=== PATIENT | female | born 1950 | race Caucasian/White ===

== ENCOUNTER 2024-07-20 21:15 | Day surgery (SDC) | payer MEDICARE, BC, SELFPAY ==
[2024-07-20] VITALS (8 sets, daily range): BP systolic 134–148; BP diastolic 54–76; BMI 26.5; BMI 27.7
[2024-07-20 17:27] LABS: % Basophils 0.4 % (0-2); % Eosinophils 0.2 % (0-6); % Immature Granulocytes 0.5 % (0-0.5); % Lymphocytes 6.4 % (20.5-51.1); % Neutrophils 86.5 % (42.2-75.2); Absolute Basophils 0.1 10^3/uL (0-0.2); Absolute Immature Granulocytes 0.1 10^3/uL (0-0.05); Absolute Neutrophils 13.9 10^3/uL (1.4-6.5); Hematocrit 37.3 % (37.0-47.0); Mean Corp Hgb Conc. 32.2 g/dL (33.0-37.0); Mean Corpuscular Hgb 24.5 pg (27.0-31.0); Mean Corpuscular Volume 76.3 fL (81.0-99.0); Mean Platelet Volume 9.6 fL (7.4-10.4); Nucleated Red Blood Cells % 0 %; Platelet Count 306 10^3/uL (130-400); Red Blood Cell Count 4.89 10^6/uL (4.20-5.40); White Blood Cell Count 16.1 10^3/uL (4.8-10.8)
[2024-07-20 17:45] LABS: ALT (SGPT) 39 U/L (0-35); AST (SGOT) 37 U/L (14-36); Albumin 4.8 g/dl (3.5-5.0); Alkaline Phosphatase 140 U/L (38-126); Blood Urea Nitrogen 25 mg/dl (7-17); Calcium 9.8 mg/dl (8.4-10.2); Carbon Dioxide 24 mmol/L (22-30); Chloride 98 mmol/L (98-107); Glucose 126 mg/dl (70-99); Lipase 96 U/L (23-300); Sodium 137 mmol/L (135-145); Total Bilirubin 0.8 mg/dl (0.2-1.3); Total Protein 6.7 g/dl (6.3-8.2); eGFR > 60.00
--- NOTE | 2024-07-20 18:40 | ED.GENMED ---
History of Present Illness
General
Chief Complaint: Abdominal Symptoms
Source: patient
Exam Limitations: none
Time Seen by Provider: 07/20/24 17:53
Nursing documentation reviewed up to this point in time: agreed with
History of Present Illness
History of Present Illness:
73-year-old female past medical history of hypertension hyperlipidemia presenting to the emergency department today with concerns of right lower quadrant French pain worsening over the past 5 hours or so. Denies any specific injury but was playing
tennis earlier today. No nausea or vomiting no changes in bowel movements. No chest pain shortness of breath. No vaginal symptoms. No urinary symptoms.
Past History
Past History
ED Past Medical History: Cancer (Breast CA and Bladder CA), GERD, HTN, Hypercholesterolemia, Psychiatric (A/D), Other (The patient is under severe psychiatric stress due to the disability of her . ) and Other (Breast CA, in situ); Negative
CAD or COPD
ED Past Surgical History: Gynecological ( Right Lumpectomy with Radiation only, Oophorectomy 1.5)
Social History
Tobacco: Former smoker
Alcohol: Daily (Wine)
Drug: None
Personal:
Living: with family
Employment: Employed
Family History
Family History: Hypertension
Review of Systems
Review of Systems
Allergies reviewed?: Yes
All Other Systems: ROS reviewed and negative except as documented in HPI and ROS
Phy Exam
Physical Exam
Physical Exam:
GENERAL: Alert , in no apparent distress
EYE: pupils equal and reactive
NECK: Supple, no significant adenopathy.
ENT: o/p clr, mmm.
CARDIAC: Regular rate and rhythm .
LUNGS: Clear breath sounds bilaterally, no acute respiratory distress, no wheezes/rales/rhonchi
ABDOMEN: Severe tenderness palpation to the right lower quadrant of the abdomen otherwise soft benign abdomen.
NEUROLOGICAL: Alert and oriented, no focal neuro deficits
SKIN: Warm and dry, skin intact.
MUSCULOSKELETAL: No edema, well perfused.
PSYCH: Normal and appropriate interaction.
Course
Orders/Labs/Results
Orders:
Orders
07/20/24 17:18
Complete Blood Count/With Diff Urgent
Comprehensive Metabolic Panel Urgent
Lipase Urgent
07/20/24 18:18
CT Abd/Pel (IV only)-DH only Urgent
Comment:
Reason For Exam: rlq pain
Ketorolac [Toradol] 15 mg IV NOW STA
07/20/24 18:19
0.9% Sodium Chloride 1000 ml [Nss] 1,000 ml IV BOLUS
07/20/24 20:27
Zosyn 3.375 grams IVPB NOW Piperacillin/Tazo 3.375 Gram [Zosyn] 3.375 gram in 50 ml IV NOW
Abnormal Lab Results
07/20/24
17:18
WBC 16.1 H 10^3/uL
(4.8-10.8)
MCV 76.3 L fL
(81.0-99.0)
MCH 24.5 L pg
(27.0-31.0)
MCHC 32.2 L g/dL
(33.0-37.0)
RDW 19.0 H %
(11.5-14.5)
Abs Immat Gran (auto) 0.1 H 10^3/uL
(0-0.05)
Absolute Neuts (auto) 13.9 H 10^3/uL
(1.4-6.5)
Absolute Lymphs (auto) 1.0 L 10^3/uL
(1.2-3.4)
Absolute Monos (auto) 1.0 H 10^3/uL
(0.1-0.6)
Neutrophils % 86.5 H %
(42.2-75.2)
Lymphocytes % 6.4 L %
(20.5-51.1)
BUN 25 H mg/dl
(7-17)
Glucose 126 H mg/dl
(70-99)
AST 37 H U/L
(14-36)
ALT 39 H U/L
(0-35)
Alkaline Phosphatase 140 H U/L
(38-126)
07/20/24 17:18
07/20/24 17:18
Vital Signs
Initial and Last Documented VS:
Initial Vital Signs
Temp Pulse Resp BP Pulse Ox
98.2 F 91 18 147/73 95
07/20/24 17:11 07/20/24 17:11 07/20/24 17:11 07/20/24 17:11 07/20/24 17:11
Last Documented Vital Signs
Temp Pulse Resp BP Pulse Ox
98.5 F 98 20 137/62 92
07/20/24 18:48 07/20/24 18:48 07/20/24 18:48 07/20/24 18:48 07/20/24 18:48
MDM/Problems Addressed
MDM/Problems Addressed:
73-year-old female presenting to the emergency department today with concerns of worsening right lower quadrant abdominal pain over the past 5 hours. Upon arrival vital signs are normal but patient does have exquisite discomfort to the right lower
quadrant when palpating. Remainder of the abdomen soft. White count 16.1. Plan for CT scan for further assessment. CT scan showing acute appendicitis without complicating features. Case discussed with general surgery that will accept her to
their service. Starting Zosyn otherwise stable throughout ER stay.
*Critical Care Note
Total Time (30-74mins, 75-104mins- exclusive of procedures): Not Applicable
ED Attending Note
-
Portions of this chart may have been created with voice recognition software.� Occasional wrong word or��sound alike� substitutions may have occurred due to the inherent limitations of voice recognition software.
Discharge Plan
Departure
Patient Disposition: Admit
Date of Disposition: 07/20/24
Time of Disposition: 20:28
Admit to: Med/Surg
Admit to doctor: Hernandez
Presentation/result/management discussed w/ accepting MD/DO: General surgery
Patient with high blood pressure during this ER visit?: No
Condition: Good
Covid-19: Not Applicable
Discharge Problem:
Acute appendicitis
Prescriptions:
No Action
hydrochlorothiazide [Microzide] 12.5 MG capsule
25 mg PO DAILY
multivitamin [Multi-Day] 1 EACH tablet
1 mg PO DAILY
anastrozole 1 MG tablet
1 mg PO DAILY
atorvastatin 10 MG tablet
10 mg PO DAILY
citalopram 10 MG tablet
10 mg PO DAILY
aspirin 81 MG tablet,chewable
81 mg PO DAILY
calcium citrate 200 MG tablet
200 mg PO DAILY
docosahexaenoic acid-epa 1 CAP capsule
1 cap PO DAILY
omeprazole magnesium [Prilosec OTC] 20 MG tablet,delayed release (DR/EC)
20 mg PO DAILY
sucralfate 1 GRAM tablet
1 g PO ACHS Qty: 28 0RF
Rx Instructions:
May disolve in 10ml of water
Referrals:
Iker Chan MD [Family Provider] -
Interventions
Interventions:
*Risk Screen - Suicide Last Done: 07/20/24 17:11
*General Assessment Last Done: 07/20/24 17:11
*Neglect/Abuse Screening Last Done: 07/20/24 17:11
ED- Fall Risk Assessment Last Done: 07/20/24 18:48
*ED COVID-19 Vaccine History Last Done: 07/20/24 18:48
QF-Gtvvty-Vlmyypjptr Assessment Last Done: 07/20/24 18:48
Discharge Date and Time
Print Language: BAHRAINI
[2024-07-20] MEDS: NSS 1000 IV ×2 (18:42→23:29)
[2024-07-20] MEDS: TORADOL 15 MG IV (18:42)
[2024-07-20] MEDS: ZOSYN 50 IV (20:48)
--- NOTE | 2024-07-20 21:05 | HPS.HSE ---
Family Physician
-
Family Physician: Iker Chan MD
Chief Complaint
-
abd pain
History of Present Illness
73-year-old female past medical history of hypertension hyperlipidemia, right breast cancer, OA GERD presenting to the emergency department today with concerns of right lower quadrant abd pain worsening over the past 5 hours or so. Pt states she
was playing Tennis from 10-12pm and afterward started with abd pain and bloating.Thought initially she needed to have a BM but pain increased throughout day. No nausea or vomiting no changes in bowel movements. No chest pain shortness of breath.
No vaginal symptoms. No urinary symptoms.
ct abd: The appendix is dilated and measures up to 11 mm in diameter. Periappendiceal inflammatory fat stranding and wall thickening are compatible with acute appendicitis. No extraluminal free air or fluid collection. No bowel obstruction.
WBC 16.1
Medical History
Past Medical History
Past Medical History: Reports Cancer (right breast cancer with lumpectomy and radiation 10 yrs ago), GERD, HTN, Hypercholesterolemia and Psychiatric (depression after loss of )
Past Surgical History: Reports Gynocological (partial oopherectomy), Orthopedic (right TKA january 2024, lumbar epidurals), Tonsilectomy and Other (hernia repair with mesh x 3 'years ago')
Social History
Tobacco: Non-smoker
Alcohol: Daily (wine)
Drug: None
Personal:
Living: Alone
Employment: Retired
Family History
Family History: Not pertinent
Allergies / Home Medications
Allergies reflects when Allergies were last updated in [employer].
Home Medications with original date entered in [employer]
Allergy/Medication List:
Allergies
Allergy/AdvReac Type Severity Reaction Status Date / Time
No Known Allergies Allergy Verified 07/20/24 20:41
Home Medications
hydrochlorothiazide 12.5 mg capsule (Microzide) 25 mg PO DAILY
aspirin 81 mg chewable tablet 81 mg PO DAILY
calcium citrate 200 mg (950 mg) tablet 200 mg PO DAILY
multivitamin (Multi-Day tablet) 1 mg PO DAILY
omeprazole magnesium 20 mg tablet,delayed release (Prilosec OTC) 40 mg PO DAILY
amlodipine 5 mg tablet 5 mg PO DAILY HS
coenzyme Q10 100 mg capsule (CoQ-10) 200 mg PO DAILY
duloxetine 20 mg capsule,delayed release (Cymbalta) 20 mg PO DAILY 07/20/24
famotidine 40 mg tablet 40 mg PO DAILY 07/20/24
losartan 100 mg tablet 100 mg PO DAILY 07/20/24
rosuvastatin 10 mg tablet 10 mg PO DAILY 07/20/24
Review of Systems
-
History Source: Patient
A 12 point ROS was completed and negative except as noted: Yes
Constitutional: Reports No Symptoms
EENT: Reports No Symptoms
Cardiac: Reports No Symptoms
Abdomen/GI: Reports Abdominal Pain
Musculoskeletal: Reports No Symptoms
Skin: Reports No Symptoms
Neurological: Reports No Symptoms
Endocrine: Reports No Symptoms
Hematologic/Lymphatic: Reports No Symptoms
Psych: Reports No Symptoms
Physical Exam
Vital Signs
Vital Signs
Temp Pulse Resp BP Pulse Ox
98.2 F 99 20 139/64 96
07/20/24 20:41 07/20/24 20:58 07/20/24 18:48 07/20/24 20:52 07/20/24 20:58
Physical Exam
General: Well Developed, Well Nourished, No Apparent Distress, Comfortable and Pain (5/10 abd pain worse with movement)
HEENT: NormoCephalic, Anicteric and Moist mucous membranes
Respiratory: Clear and Non Labored Respirations
Cardiac: S1/S2 and Regular Rhythm
Breast: Deferred by me
GI: Soft, Normal Bowel Sounds, Tender (rlq) and Distended (softly distended)
Rectal: Deferred by Provider
Genito-urinary: Deferred by me
Musculoskeletal: No Clubbing and No Cyanosis
Skin: Warm
Neuro: Alert
Hematologic/Lymphatic: No Lymphadenopathy
Psych: Calm
Laboratory Results
-
07/20/24 17:18
07/20/24 17:18
Laboratory Results
Total Bilirubin 0.8 mg/dl (0.2-1.3) 07/20/24 17:18
AST 37 U/L (14-36) H 07/20/24 17:18
ALT 39 U/L (0-35) H 07/20/24 17:18
Alkaline Phosphatase 140 U/L (38-126) H 07/20/24 17:18
Lipase 96 U/L (23-300) 07/20/24 17:18
Data Reviewed
-
CT Scan: Discussed with Physician
Lab Data: Discussed with Patient
Impression/Plan
-
IMPRESSION:
acute appendicis without perforations
PLAN:
Admit to service of Dr Ng
med surg obs
acute appendicis without perforations
-npo x meds after midnight
-ivf nss@80
-pain control: tylenol, toradol, morphine prn
-cont zosyn q6prn
-WBC 16.1--> recheck in am
HTN
-cont Norvasc, losartan, hold hctz with OR
HLD:
-Some transamitis on labs
-repeat in am and can likely resume rosuvastatin at dc
Depression
-cont cymbalta
GERD
-cont omeprazole, pepcid
dvt proph: scd
Full code
--- NOTE | 2024-07-20 23:13 | PTCARENOTE ---
pt admitted to 2S. AAOx3 pleasant. Assessment done and charted. Pt c/o Rt lower quadrant pain but manageable. Reg Heart sounds, traces of ankle edema. Lung sounds are diminished at the bases, shallow breathing. Abd round and tender to palpation.
SCD's knee high and CRISTELA placed. Call coffman within reach.
[2024-07-21] VITALS (13 sets, daily range): BP systolic 123–138; BP diastolic 55–73
[2024-07-21] MEDS: TORADOL 10 MG IV ×4 (00:42→20:47)
[2024-07-21] MEDS: ZOSYN 50 IV ×3 (03:22→21:57)
[2024-07-21 06:11] LABS: % Basophils 0.5 % (0-2); % Eosinophils 1.4 % (0-6); % Immature Granulocytes 0.2 % (0-0.5); % Lymphocytes 13.6 % (20.5-51.1); % Monocytes 6.7 % (1.7-9.3); % Neutrophils 77.6 % (42.2-75.2); Absolute Eosinophils 0.1 10^3/uL (0-0.7); Absolute Lymphocytes 1.2 10^3/uL (1.2-3.4); Absolute Monocytes 0.6 10^3/uL (0.1-0.6); Absolute Neutrophils 6.7 10^3/uL (1.4-6.5); Hematocrit 31.9 % (37.0-47.0); Hemoglobin 10.4 g/dL (12.0-16.0); Mean Corp Hgb Conc. 32.6 g/dL (33.0-37.0); Mean Corpuscular Hgb 25.7 pg (27.0-31.0); Mean Platelet Volume 10.3 fL (7.4-10.4); Nucleated Red Blood Cells % 0 %; Platelet Count 250 10^3/uL (130-400); Red Blood Cell Count 4.04 10^6/uL (4.20-5.40); Red Cell Dist. Width 18.6 % (11.5-14.5); White Blood Cell Count 8.6 10^3/uL (4.8-10.8)
[2024-07-21 06:47] LABS: ALT (SGPT) 27 U/L (0-35); AST (SGOT) 27 U/L (14-36); Albumin 3.5 g/dl (3.5-5.0); Alkaline Phosphatase 106 U/L (38-126); Blood Urea Nitrogen 17 mg/dl (7-17); Calcium 8.9 mg/dl (8.4-10.2); Carbon Dioxide 26 mmol/L (22-30); Chloride 101 mmol/L (98-107); Estimated Creatinine Clearance 63 ml/min; Glucose 107 mg/dl (70-99); Potassium 3.2 mmol/L (3.5-5.1); Sodium 139 mmol/L (135-145); Total Protein 5.4 g/dl (6.3-8.2); eGFR > 60.00
--- NOTE | 2024-07-21 07:42 | W.SUR.PREOP ---
Pre-Operative Surgical Note
-
I have examined this patient prior to the performance of the scheduled procedure.
The patient's condition is unchanged from the time of the current History and
Physical and the patient is able to undergo the scheduled procedure.
[2024-07-21] MEDS: COZAAR PO (07:56)
[2024-07-21] MEDS: CYMBALTA DELAYED RELEASE PO (07:56)
[2024-07-21] MEDS: NORVASC PO (07:56)
[2024-07-21] MEDS: ORETIC PO (07:56)
[2024-07-21] MEDS: PROTONIX PO (07:57)
[2024-07-21] MEDS: THERAGRAN PO (07:57)
[2024-07-21] MEDS: PEPCID PO (07:57)
[2024-07-21] MEDS: ZOSYN IV (08:50)
--- NOTE | 2024-07-21 09:25 | W.IMMPOSTOP ---
Surgical Immed Post Op Note
-
Primary Surgeon: Wallace Ng MD
Assisting Surgeon: None
Pre-op Diagnosis: Acute appendicitis
Post-op Diagnosis: Same
Procedure Performed: Laparoscopic appendectomy
Anesthesia Type: General
Specimen / Cultures: Appendix
Estimated Blood Loss: 1 cc
Complications: None
Operative Findings: Three 5 mm port appendectomy. Index was inflamed and mildly suppurative but not perforated. The base was healthy and ligated with 2-0 PDS Endoloops. Of note, no mesh noted in the left lower quadrant.
POST OP PLAN:
Imaging: None
Labs: Routine AM
Diet: Advance to Regular as tolerated
Analgesia: Tylenol 650mg q6 Pavan, Priya 5mg q6 PRN, Dilaudid 0.5mg q2h PRN
Neuro/vascular checks: q4h
AC/AP: Hold Therapeutic AC, Ok for DVT PPx
Activity: Ad Katie
Wound/Incisions/Drains: Routine
Abx: Can continue antibiotics while admitted
Dispo: RNF, anticipate discharge home later today off antibiotics.
--- NOTE | 2024-07-21 09:27 | OR.RPT ---
Operative Report
Operative Report
Patient Name: Shawna Davis
: 1950
Date of Operation: 07/21/2024
Preoperative Diagnosis: Acute Appendicitis
Postoperative Diagnosis: Same
Procedure(s):
Laparoscopic Appendectomy
Surgeon(s):
Dr. Ng
Financing Analyst(s):
DOMENIC Borden
Anesthesia: General
Estimated Blood Loss: 1 cc
Urine Output: None
Drains/Lines/Implants: None
Specimens:
1. Appendix
HPI/Surgical Indications:
This is a 73-year-old female who presents with a 1 day history of abdominal pain. Exam, labs and imaging are consistent with acute appendicitis. Risks/Benefits/Alternatives were discussed at length, and the patient agreed to proceed with surgery.
Operative Findings: Three 5 mm port appendectomy. Index was inflamed and mildly suppurative but not perforated. The base was healthy and ligated with 2-0 PDS Endoloops. Of note, no mesh noted in the left lower quadrant.
Procedure Description:
The patient was placed in the supine position, with the left arm tucked, and general anesthesia was induced. The abdomen was prepared and draped in a sterile fashion so as to expose the entire abdomen. A surgical time out was taken. Abdominal access
was obtained with an 5mm infra-umbilical George Entry. After confirming no injury on entrance, two additional 5mm ports were placed in the suprapubic area just off midline and in the left lower quadrant, where no mesh was identified. The patient was
placed in Trendelenberg with the right slightly up . The appendix was identified and a window was created in the mesoappendix. The appendix was suppurative and inflamed but not perforated. Using a bipolar energy device, the meso appendix was
divided. The base of the appendix appeared uninvolved and was ligated/divided using two 0-PDS Endoloops and the energy device. The appendix was placed in a specimen retrieval bag. Hemostasis was confirmed and the ports were removed under
visualization. The specimen was passed off the field. The umbilical port was closed with a [id number] 0-PDS and the skin for all three ports was closed with interrupted monocryls and covered with dermabond. The patient was awoken from
anesthesia in good condition and transported to the recovery area.
I was the attending physician and performed the procedure with assistance from the MLT above. I was present for all portions of the case, excluding skin closure.
Wallace Ng MD
--- NOTE | 2024-07-21 10:00 | SUR.PHASEI ---
Pt received 20MEQ of Potassium in OR
--- NOTE | 2024-07-21 10:41 | PTCARENOTE ---
Pt returned to 2S in bed. Pt drowsy but easily arouses to verbal stimuli. Nasal cannula maintained, O2 92% on 2L. Incentive spirometer education provided, pt demonstrated understanding. 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 IVF infusing per
order. Bed locked and in the lowest position, safety maintained. Oriented to room and call augustus sister at bedside.
--- NOTE | 2024-07-21 11:50 | CM ---
Met with pt at bedside
Pt reports she lives alone in a 2 story home; 1 step to enter, FF set-up
Independent, driving, active
DME - none
SNF - no past hx
HH - had in past - unsure of agency. Had outpatient PT at in past
Has ride at discharge
PCP - Kyle Chan
Pharm - [facility]
Discussed [employer] letter
Plan - anticipate home no needs
[2024-07-21] MEDS: TYLENOL 650 MG PO (11:51)
[2024-07-21] MEDS: NSS IV (16:51)
--- NOTE | 2024-07-21 17:00 | PTCARENOTE ---
Several attempts made to wean pt to room air. Pt unable to maintain O2 saturation > 92% on room air. Pt repeatedly desatting to low- mid 80s when off oxygen, Pt able to reach 95 on room air while taking deep breaths/ using IS. Pt denies SOB,
dyspnea, CP/ pressure or palpitations. Jamal Ferrara EDGE GRINDER notified. Care remains ongoing.
[2024-07-21 20:33] LABS: Hepatitis C Antibody Negative (Negative)
[2024-07-22 03:10] VITALS: BP 138/66
[2024-07-22] MEDS: ZOSYN 50 IV (04:18)
[2024-07-22 07:05] VITALS: BP 124/69
[2024-07-22] MEDS: PROTONIX 40 MG PO (07:42)
[2024-07-22] MEDS: PEPCID 40 MG PO (07:42)
[2024-07-22] MEDS: CYMBALTA DELAYED RELEASE 20 MG PO (07:42)
[2024-07-22] MEDS: THERAGRAN 1 TABLET PO (07:42)
[2024-07-22] MEDS: COZAAR 100 MG PO (07:42)
[2024-07-22] MEDS: ORETIC 25 MG PO (07:42)
[2024-07-22] MEDS: NORVASC 5 MG PO (07:43)
[2024-07-22] MEDS: TYLENOL 650 MG PO (07:56)
--- NOTE | 2024-07-22 09:07 | W.PN.GS2 ---
Addendum entered and electronically signed by Nicolás Hernandez MD 07/22/24 10:15:
Patient seen and examined.
No complaints. Pain well-controlled. Denies nausea or vomiting. Passing flatus. Weaned off of O2, no reports of chest pain or shortness of breath. Ambulating. Voiding.
Gen: NAD
Abd: soft, mild tenderness, ND, non-peritoneal, incisions c/d/i - no erythema, or drainage, mild ecchymosis
Patient is a 73 yo F POD#1 s/p laparoscopic appendectomy
AVSS
Weaned off of supplemental O2
Stable and cleared for discharge
--Regular diet
--Pain control: Tylenol, Toradol, Oxycodone
--Abx: none needed on DC
--Home meds
--Continue IS
--Discharge to home
Original Note:
Today's Communication / Plan
-
dispo planning
Assessment / Plan
-
73 yo female who presented with acute appendicitis now POD #1 lap appendectomy
Post op acute hypoxia secondary to atelectasis, now resolved
AFVSS
Tolerating diet
--Continue regular diet
--Analgesics prn
--Continue IS
--Discharge to home
Subjective Data
-
Date of Service: July 22, 2024
Patient seen and evaluated at bedside with Dr. Hernandez. Denies n/v. Tolerating diet, passing flatus. OOB/Ambulating. Denies cough/sob. Pain minimal.
Objective Data
-
Intake and Output
07/21/24 07/22/24 07/23/24
06:59 06:59 06:59
Intake Total 650 / 650 3250 / 3250
Balance 650 / 650 3250 / 3250
Intake:
Oral fluids 120 / 120 2520 / 2520
IV fluids (Total) 480 / 480 580 / 580
normosol 100 / 100
IV piggybacks 50 / 50 150 / 150
Other:
Number of approximated MODERATE 1 4
amounts of urine
Number of approximated LARGE 1 2
amounts of urine
Vital Signs
Temp Pulse Resp BP Pulse Ox
97.6 F 82 14 124/69 96
07/22/24 07:05 07/22/24 07:05 07/22/24 07:05 07/22/24 07:05 07/22/24 07:05
Lab Results
07/21/24 04:58
07/21/24 04:58
Calcium 8.9 mg/dl (8.4-10.2) 07/21/24 04:58
Total Bilirubin 1.0 mg/dl (0.2-1.3) 07/21/24 04:58
AST 27 U/L (14-36) 07/21/24 04:58
ALT 27 U/L (0-35) 07/21/24 04:58
Alkaline Phosphatase 106 U/L (38-126) 07/21/24 04:58
Total Protein 5.4 g/dl (6.3-8.2) L 07/21/24 04:58
Albumin 3.5 g/dl (3.5-5.0) 07/21/24 04:58
Physical Exam
-
NAD
Nonlabored respirations
ABD soft, nt, nd
Incisions well approximated with intact glue and no erythema
--- NOTE | 2024-07-22 09:10 | W.DS.TRANS ---
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
-
Discharge Instructions:
Discharge Diagnosis/Procedures Appendicitis status post laparoscopic
appendectomy
Diet Regular,As tolerated
Activity No strenuous activity
Bathing Restrictions OK to Shower
Instructions:
Stand-Alone Forms:
Changes to Home Medications: No
Discharge Medications:
DC Medications w/original date entered in [facility]
hydrochlorothiazide 12.5 mg capsule (Microzide) 25 mg PO DAILY Fever/Pain 12/03/09
aspirin 81 mg chewable tablet 81 mg PO DAILY Blood Clot Prevention/Tx 08/12/16
calcium citrate 200 mg PO DAILY Supplement 08/12/16
multivitamin (Multi-Day tablet) 1 mg PO DAILY Supplement 08/12/16
omeprazole magnesium 20 mg tablet,delayed release (Prilosec OTC) 40 mg PO DAILY Gastrointestinal Issue 08/12/16
amlodipine 5 mg tablet 5 mg PO DAILY Blood Pressure 07/20/24
coenzyme Q10 100 mg capsule (CoQ-10) 200 mg PO DAILY Supplement 07/20/24
duloxetine 20 mg capsule,delayed release (Cymbalta) 20 mg PO DAILY Depression 07/20/24
famotidine 40 mg tablet 40 mg PO DAILY Gastrointestinal Issue 07/20/24
losartan 100 mg tablet 100 mg PO DAILY Blood Pressure 07/20/24
rosuvastatin 10 mg tablet 10 mg PO DAILY High Cholesterol 07/20/24
acetaminophen 325 mg tablet 650 mg (2 x 325 mg) PO Q6HPRN PRN mild pain #14 tabs 07/21/24
ibuprofen 600 mg tablet 600 mg PO Q6H PRN pain #14 tabs 07/21/24
tramadol 50 mg tablet 25 mg (1/2 x 50 mg) PO Q6HPRN PRN severe pain/breakthrough pain #8 tabs 07/21/24
Home Medication Changes
Pending Results: No
--- NOTE | 2024-07-22 10:46 | CM ---
Pt for discharge today
Has ride home with family member
Plan - home no needs
== END 2024-07-22 10:33 | disposition home or self-care (01) ==
LOC: SDS 21:15
PROVIDERS: Nurse Practitioner Family; ATTENDING PHYSICIAN Surgery; EMERGENCY PHYSICIAN Student in an Organized Health Care Education/Training Program; FAMILY PHYSICIAN Family Medicine
DX: K35.80 Unspecified acute appendicitis (principal)
CPT/HCPCS: 44970; 88304; 71046; 74177; 80053; 83690; 85025; 86803; 96361; 96365; 96375; 99285; C1776; Q9967

== ENCOUNTER → 2024-08-15 07:46 | Outpatient (REF) | payer MEDICARE, BC, SELFPAY | LOC: HWRAD 07:46 | PROVIDERS: ATTENDING PHYSICIAN Surgery; FAMILY PHYSICIAN Family Medicine | DX: Z90.49 Acquired absence of other specified parts of digestive tract (principal); R10.30 Lower abdominal pain, unspecified | CPT/HCPCS: 74177; Q9967 ==

== ENCOUNTER → 2025-03-26 10:21 | Outpatient (REF) | payer MEDICARE, BC, SELFPAY | LOC: HWRCS 10:21 | PROVIDERS: ATTENDING PHYSICIAN Internal Medicine Cardiovascular Disease; FAMILY PHYSICIAN Family Medicine | DX: I35.1 Nonrheumatic aortic (valve) insufficiency (principal) | CPT/HCPCS: 93306 ==

== ENCOUNTER → 2025-05-28 10:15 | Outpatient (REF) | payer MEDICARE, BC, SELFPAY | LOC: HWCARD 10:15 | PROVIDERS: ATTENDING PHYSICIAN Orthopaedic Surgery; FAMILY PHYSICIAN Family Medicine | DX: Z01.818 Encounter for other preprocedural examination (principal) | CPT/HCPCS: 93005 ==

== ENCOUNTER → 2025-07-21 17:59 | Outpatient (REF) | payer MEDICARE, BC, SELFPAY | LOC: RAD 17:59 | PROVIDERS: ATTENDING PHYSICIAN Physician Assistant Surgical; FAMILY PHYSICIAN Family Medicine | DX: Z96.652 Presence of left artificial knee joint (principal); M79.652 Pain in left thigh; M79.662 Pain in left lower leg; M25.462 Effusion, left knee | CPT/HCPCS: 93971 ==